=== PATIENT | male | born 1990 | race Caucasian/White ===

== ENCOUNTER → 2020-12-27 16:43 | Outpatient (BNVA) | payer OTHER, SELFPAY | PROVIDERS: Family Provider Family Medicine; PCP Family Medicine; Visit Provider Nurse Practitioner Family | DX: Z20.828 Contact with and (suspected) exposure to other viral communicable diseases (principal) | CPT/HCPCS: 87635 ==

== ENCOUNTER → 2021-11-06 10:31 | Outpatient (BNVA) | payer MEDICAID, SELFPAY | PROVIDERS: Family Provider Family Medicine; PCP Family Medicine; Visit Provider Nurse Practitioner Family | DX: Z20.822 Contact with and (suspected) exposure to COVID-19 (principal) | CPT/HCPCS: 87635 ==

== ENCOUNTER 2023-10-28 16:36 | Emergency (ER) | payer MEDICAID, SELFPAY ==
[2023-10-28 16:39] VITALS: BP 135/81; PULSE 104; RESP 15; TEMP 37.2; O2SAT 96; BMI 24.5
--- NOTE | 2023-10-28 16:46 | XRR_ITS ---
PROCEDURE INFORMATION: Exam: XR Left Finger(s) Exam date and time: 10/28/2023 4:51 PM Age: 33 years old Clinical indication: Injury or trauma; Other: Laceration; Finger; Left; Thumb; Additional info: Thumb laceration TECHNIQUE: Imaging protocol: Radiologic exam of the left fingers. Views: Minimum 2 views. COMPARISON: No relevant prior studies available. FINDINGS: Limitations: There is a metal ring that obscures some portions of the 4th proximal phalanx. Bones/joints: There is no evidence of fracture or dislocation. There is deformity of the 5th metacarpal consistent with old healed fracture. Soft tissues: There is small metallic foreign body in the soft tissues of the webspace of the thumb. It is uncertain whether this is related to the patient's present injury. Please correlate clinically. There is mild soft tissue swelling of the hand. XR/XR finger LT min 2V [id number] IMPRESSION: 1. Metallic foreign body in the soft tissues. 2. No fracture is identified.
--- NOTE | 2023-10-28 16:47 | ED_ITS ---
HPI - Wound/Laceration General: Chief Complaint: Wound/Laceration Stated Complaint: left thumb lac Time Seen by Provider: 10/28/23 16:37 Source: patient Mode of arrival: ambulatory Limitations: no limitations History of Present Illness: Patient is a 33-year-old male who presents to ED today for evaluation of a laceration to his left thumb that he sustained just prior to arrival after he was using a knife to cut sheet rock. Tetanus is up-to-date. Bleeding is controlled. Patient denies any changes in range of motion. Denies numbness, tingling, loss of sensation. Onset (ago): hour(s) Extremity Location: Left: hand (thumb) Place: home Patient tetanus UTD: Yes Context: accidental Associated symptoms: Reports no associated symptoms Treatments prior to arrival: bandage Review of Systems Musc: Reports: extremity pain; Denies: extremity swelling, joint pain, joint swelling, joint redness, joint warmth or limited range of motion Skin/Breast: Reports: other (laceration) Neuro: Denies: numbness in extremities or sensory changes PFSH ED PFSH: Social History Smoking and tobacco/nicotine status: current every day tobacco/nicotine user cigarettes Packs smoked per day: 0.5 Alcohol intake: never Substance/Drug Use: never Physical Exam Const: COMMON NORMALS: no acute distress, no limitations, healthy appearing and well nourished Extremity: COMMON NORMALS: full ROM, capillary refill normal and no clubbing, cyanosis or edema GENERAL: Yes normal exam except as noted LEFT UPPER EXTREMITY: Yes hand & digits Left hand and digits: Yes inspection (superficial laceration dorsum distal thumb near IP joint), Yes ROM (normal ROM against resistance in all plains), Yes neurovascular exam (normal) and Yes tendon exam (no tendon involvement) Neuro: COMMON NORMALS: moves all extremities, no focal motor deficits and no sensory deficits noted Skin: TRAUMA: laceration Procedures Laceration Laceration 1: Site: hand (L thumb) Side (If applicable): left Size (cm): 2.5 Description: linear Depth: simple, single layer Local Anesthetic: lidocaine 1% (digital block) Amount of anesthesia used (mL): 4.0 Pre-repair: wound explored and irrigated extensively Skin layer closed with: nylon Size (cm): 5-0 Number of sutures: 4 Technique: simple, interrupted Course Vital Signs: Vital signs: Vital Signs Temperature 99.0 F 10/28/23 16:39 Pulse Rate 79 10/28/23 17:38 Respiratory Rate 15 10/28/23 16:39 Blood Pressure 120/83 10/28/23 17:38 Pulse Oximetry 95 10/28/23 17:38 Oxygen Delivery Me thod Room Air 10/28/23 16:39 MDM - Wound/Laceration Medical Decision Making No obvious tendon or nerve involvement. XR is negative. He does have a chronic metallic foreign body seen in his soft tissues. This does not correspond with today's injury. Wound was copiously irrigated and repaired as documented. Wound care/infection precautions discussed. Lab Data Radiology Impressions Finger X-Ray 10/28/23 16:46 IMPRESSION: 1. Metallic foreign body in the soft tissues. 2. No fracture is identified. All radiology interpretation(s) finalized by discharge Discharge Plan Discharge Patient Disposition: Home Clinical Impression: Laceration of left thumb Qualifiers: Encounter type: initial encounter Damage to nail status: without damage Foreign body presence: without foreign body Qualified Code(s): S61.012A - Laceration without foreign body of left thumb without damage to nail, initial encounter Condition: Stable Prescriptions: No Action methadone 10 mg tablet 5 mg PO DAILY Discharge Orders: Discharge ED (Routine); Ordered 10/28/23 Ordered By: Valorie Isaacs Patient Instructions: Care For Your Stitches (DC), Finger Laceration (ED) Activity Restrictions/Additional Instructions: Keep wound/laceration clean with warm soap and water twice daily. Monitor for signs of infection such as redness, swelling, increased pain, or drainage. Please seek medical re-evaluation if these occur. If you received sutures today these will need to be removed (unless you were told by the provider that they are absorbable). The provider should have discussed with you the length of time until removal-7 DAYS. You may return to the emergency department for this service. Coding Level of Care Code ED Roll Edge Machine Operator for Maryana Mora
[2023-10-28 17:38] VITALS: BP 120/83; PULSE 79; O2SAT 95
== END 2023-10-28 17:41 | disposition home or self-care (01) ==
PROVIDERS: Emergency Provider Physician Assistant
DX: S61.012A Laceration without foreign body of left thumb without damage to nail, initial encounter (principal); Z79.891 Long term (current) use of opiate analgesic; F17.210 Nicotine dependence, cigarettes, uncomplicated; W26.0XXA Contact with knife, initial encounter
CPT/HCPCS: 12001; 73140; 99283

== ENCOUNTER 2023-11-13 07:23 | Emergency (ER) | payer MEDICAID, SELFPAY ==
[2023-11-13 07:25] VITALS: BP 133/71; PULSE 61; RESP 16; TEMP 36.5; O2SAT 98; BMI 23.6
--- NOTE | 2023-11-13 07:44 | PC.PHAR ---
pt states he takes no prescription medications states just takes the otc meds prn that are entered
--- NOTE | 2023-11-13 07:45 | ED_ITS ---
HPI - Male Genitourinary General: Chief complaint: Urogenital-Male Stated complaint: male trouble Time Seen by Provider: 11/13/23 07:26 Source: patient Mode of arrival: ambulatory History of Present Illness: 33-year-old male presents emergency room complaining of some swelling in the anterior aspect of the foreskin. It is already improved from this morning when he noted it. He denies any dysuria urgency or frequency. No redness no drainage she does not recall any trauma. Onset (ago): hour(s) Duration: improved Location: penis Relieving factors: none Exacerbating factors: none Associated symptoms: Reports swelling; Deny discharge, dysuria, fevers/chills, hematuria, rash or urinary retention Review of Systems Const: Denies: fever(s) or chills : Denies: flank pain, difficulty urinating, dysuria, urinary frequency, urinary urgency, change in urine stream, hematuria, genital pain, penile discharge or testicular pain PFSH ED PFSH: Social History Smoking and tobacco/nicotine status: current every day tobacco/nicotine user cigarettes Packs smoked per day: 0.5 Alcohol intake: never Substance/Drug Use: never Physical Exam Const: COMMON NORMALS: no acute distress GENERAL APPEARANCE: cooperative and comfortable ORIENTATION/CONSCIOUSNESS: Yes awake, Yes oriented to person, Yes oriented to place and Yes oriented to time HENMT: COMMON NORMALS: normocephalic, atraumatic and hearing grossly normal bilaterally HEAD & SCALP: normocephalic and atraumatic Resp: COMMON NORMALS: normal respiratory effort, No retractions and No use of accessory muscles : MALE GROIN/PERINEUM EXAM: No Genital lesions present PENIS: circumcised, no condylomata, edematous (Anterior portion), not erythematous, no masses, no nodules, no papules, no vesicles, no ulcerations and No Genital lesions present MEATUS: meatus normal, no meatla discharge and No Blood at meatus present SCROTUM: No testes descended bilaterally TESTES: No testicular lie normal, No testicular swelling, No testicular tenderness and No testicular mass Extremity: COMMON NORMALS: normal to inspection, capillary refill normal, no clubbing, cyanosis or edema, no calf tenderness and no pedal edema Neuro: SENSORIUM/ORIENTATION: Yes oriented to person, Yes oriented to place and Yes oriented to time Skin: COMMON NORMALS: no rashes or lesions noted GENERAL SKIN EXAM: no rashes or lesions noted Course Vital Signs: Vital signs: Vital Signs Temperature 97.7 F 11/13/23 07:25 Pulse Rate 61 11/13/23 07:25 Respiratory Rate 16 11/13/23 07:25 Blood Pressure 133/71 11/13/23 07:25 Pulse Oximetry 98 11/13/23 07:25 MDM - Male Medical Decision Making UA is negative. There is no sign of vesicular rash in mild swelling but no erythema no penile drainage no bruising no ecchymosis or abrasion. No ulcerations. Observe follow-up with primary care if worsening. Medical Records I reviewed the patient's medical records. Lab Data I reviewed the patient's lab results. Laboratory Results Urine Color Yellow (Yellow) 11/13/23 07:39 Urine Appearance Clear (CLEAR) 11/13/23 07:39 Urine pH 5 (5-7) 11/13/23 07:39 Ur Specific Harris 1.025 (1.005-1.030) 11/13/23 07:39 Urine Protein Trace (Negative) 11/13/23 07:39 Urine Glucose (UA) Norm (Normal) 11/13/23 07:39 Urine Ketones Negative (Negative) 11/13/23 07:39 Urine Blood Neg (Negative) 11/13/23 07:39 Urine Nitrate Negative (Negative) 11/13/23 07:39 Urine Bilirubin Neg (Negative) 11/13/23 07:39 Urine Urobilinogen Neg mg/dL (Negative) 11/13/23 07:39 Ur Leukocyte Esterase Negative (Negative) 11/13/23 07:39 Urine RBC None /hpf (0-2) 11/13/23 07:39 Urine WBC 0-4 /hpf (0-5) H 11/13/23 07:39 Ur Squamous Epith Cells 0-4 /hpf (0-5) H 11/13/23 07:39 Amorphous Sediment Not Reportable 11/13/23 07:39 Urine Bacteria Trace /hpf (NONE) 11/13/23 07:39 Urine Mucus 2+ /hpf 11/13/23 07:39 No radiology studies performed this visit Discharge Plan Discharge Patient Disposition: Home Clinical Impression: Foreskin swelling Condition: Stable Prescriptions: No Action Aleve 220 mg Tablet 440 mg PO Q12H PRN (Reason: Pain) ibuprofen 200 mg Tablet 800 mg PO Q6H PRN (Reason: Pain) Discharge Orders: Discharge ED (Routine); Ordered 11/13/23 Ordered By: Tato Scherer Patient Instructions: Opioid Safety, Pain Management Activity Restrictions/Additional Instructions: Thank you for choosing [facility] for your healthcare needs today. Please realize this is an emergency room and that we are providing you with a medical screening exam and this may not be complete and all inclusive of all the testing and or work up that you may need to determine your ailment or severity of your illness. It is very important that you follow up as instructed or that you return to the Emergency Department should you have concerns or if your condition changes or worsens in any way. You are seen today for some swelling of the foreskin. There is no sign of infection. Swelling is minor. Is most likely caused by minor trauma. Urine was normal. If symptoms persist follow-up with your primary care doctor. Coding Level of Care Code ED Perinatal Breastfeeding Assistant for Maryana Mora
[2023-11-13 08:11] LABS: Add Urine Microscopic? YES; Bilirubin Urine Neg (Negative); Blood Urine Neg (Negative); Glucose Urine UA Norm (Normal); Ketones Urine Negative (Negative); Leukocyte Esterase Urine Negative (Negative); Nitrate Urine Negative (Negative); Protein Urine Trace (Negative); Specific Gravity, Urine 1.025 (1.005-1.030); Urine Appearance Clear (CLEAR); Urine Color Yellow (Yellow); Urobilinogen Urine Neg (Negative); pH Urine 5 (5-7)
[2023-11-13 08:12] LABS: Add Urine Culture? No; Bacteria Urine TRACE /hpf; Mucus Urine 2+ /hpf; Squamous Epithelial Cell Urine 0-4 /hpf (0-5); WBC Urine 0-4 /hpf (0-5)
--- NOTE | 2023-11-13 08:42 | PC.NURSE ---
PATIENT ASKED FOR SUTURES FROM LEFT THUMB TO BE REMOVED. PATIENT STATES THEY ARE BUSTED AND PULLED OUT ANYWAY. NURSE EXAMINED THUMB AND SUTURES HAD BEEN CUT. SUTURES REMOVED. NO SIGNS OF INFECTION. EDGES WELL APPROXIMATED. PATIENT TOLERATED REMOVAL WELL.
== END 2023-11-13 08:48 | disposition home or self-care (01) ==
PROVIDERS: Emergency Provider Family Medicine
DX: N48.89 Other specified disorders of penis (principal); Z72.0 Tobacco use
CPT/HCPCS: 81001; 99283

== ENCOUNTER → 2023-12-14 10:16 | Outpatient (BNVA) | payer MEDICAID, SELFPAY | PROVIDERS: Visit Provider Emergency Medicine | DX: R68.89 Other general symptoms and signs (principal); U07.1 COVID-19 | CPT/HCPCS: 87400; 87426 ==